=== PATIENT | male | born 1960 | race Caucasian/White ===

== ENCOUNTER 2017-02-06 14:30 | Observation (INO) ==
--- NOTE | 2017-02-06 14:33 | Emergency Department Note ---
Disposition Clinical Impression: Elevated blood pressure reading, History of diabetes mellitus, Facial droop, Smoker, Obesity Disposition: Admitted As Inpatient Condition: Fair Referrals: NO,PCP [Non-Partnered Physician] - Forms: ED Satisfaction Letter General Adult HPI - General Chief complaint: ED Neuro Symptoms/Deficit Stated complaint: facial droop Time Seen by Provider: 02/06/17 14:33 - History of Present Illness HPI Narrative: 56-year-old male reports emergency department complaining of right facial drooping and difficulty closing his right eye with some trouble swallowing and speaking. He has had symptoms for 2 days. The patient is known to be diabetic. He denies heart problems previous CVA or hypertension or hyperlipidemia. There is no history of significant headache. No neck stiffness rash or fever. No convulsions or confusion no weakness or numbness of the arms or legs. The patient has had no brett slurred speech or confusion. There is no history of chest pain or shortness of breath no abdominal pain or vomiting or diarrhea. The patient is not anticoagulated. There is no history of coughing up blood or syncope or fall. There is no history of brett eye pain. No diplopia. - Related Data Allergies Allergy/AdvReac Type Severity Reaction Status Date / Time Penicillins Allergy Anaphylaxis Verified 02/06/17 14:32 All systems ED: reviewed and negative except as stated. Past Medical History - Past Medical History Medical history: Reports: diabetes Psychiatric history: Reports: schizophrenia Physical Exam - General Limitations: no limitations General appearance: alert, in no apparent distress - Head Head exam: atraumatic, normocephalic, normal inspection - Eye Eye exam: Present: normal appearance, PERRL, EOMI, miosis. Absent: scleral icterus, conjunctival injection - ENT ENT exam: normal exam, normal oropharynx, mucous membranes moist, TM's normal bilaterally, normal external ear exam - Neck Neck exam: Present: normal inspection, full ROM, trachea midline. Absent: meningismus - Chest Chest inspection: Present: symmetric chest wall rise. Absent: tenderness - Respiratory Respiratory exam: Present: normal lung sounds bilaterally. Absent: respiratory distress, wheezes, stridor, accessory muscle use, prolonged expiratory phase - Cardiovascular Cardiovascular exam: Present: regular rate, normal rhythm, normal heart sounds - Abdominal Exam Abdominal exam: Present: soft, Non-Tender, normal bowel sounds. Absent: tenderness, distention, guarding, rebound, rigidity, pulsatile mass - Extremities Exam Extremities exam: Present: normal inspection, full ROM, normal capillary refill. Absent: tenderness, pedal edema, joint swelling, calf tenderness - Expanded Lower Extremity Exam Lower leg exam: Absent: Homans' sign Neurovascular/Tendon exam: Present: normal capillary refill. Absent: motor deficit, sensory deficit, tendon deficit, extremity cold to touch, pallor - Back Exam Back exam: Present: normal inspection, full ROM. Absent: tenderness, CVA tenderness (R), CVA tenderness (L), vertebral tenderness - Neurological Exam Neurological exam: Present: alert, oriented X3, other (Right facial droop noted , the patient cannot close his right eye well, the patient is able to wrinkle his forehead with good motion on the left and diminished on the right compared to the left. The patient is slightly dysarthric but intelligible.). Absent: CN II-XII intact, motor sensory deficit - Psychiatric Psychiatric exam: Present: normal affect, normal mood - Skin Skin exam: Present: warm, dry, intact, normal color. Absent: rash, cyanosis, diaphoresis, erythema, pallor, mottled Course Vital Signs Temperature 98.3 F 02/06/17 14:32 Pulse Rate 92 02/06/17 14:32 Respiratory Rate 18 02/06/17 14:32 Blood Pressure 134/107 02/06/17 14:32 O2 Sat by Pulse Oximetry 97 02/06/17 14:32 Temperature 98.3 F 02/06/17 14:32 Pulse Rate 92 02/06/17 14:32 Respiratory Rate 18 02/06/17 14:32 Blood Pressure 134/107 02/06/17 14:32 O2 Sat by Pulse Oximetry 97 02/06/17 14:32 Oxygen Delivery Oxygen Delivery Room Air Medical Decision Making - [facility] Narrative Medical decision making narrative: The patient presents with right facial droop, this is been present for about 2 days, he also describes some slight dysarthria and difficulty swallowing. The patient does have an element of forehead immobility on the right versus left but it is not complete. He may have So's palsy or it is conceivable the patient has cerebrovascular disease or possibly a CVA. The patient is over 50, he is male, he is a smoker, he reports he is diabetic, he has an elevated blood pressure and obvious neurologic defects which have been present for approximately 2 days. I discussed the case with our neurologist Dr. Rice, he recommends admission to the hospital for evaluation regarding stroke. Aspirin and blood pressure control has been recommended as well as hospital stroke workup including ultrasound and MRI. The patient appears to be stable. EKG labs and radiographic studies are unremarkable at this time. Aspirin was ordered as well as Lopressor. Prednisone was given as a precaution in case this is determined to be So's palsy, Pepcid given as prophylaxis. I discussed the case with the hospitalist on-call who has accepted the patient to their care. - Lab Data Lab results reviewed: Yes I reviewed the patient's lab results. Result diagrams: 02/06/17 15:11 02/06/17 15:11 Lab Results 02/06/17 02/06/17 02/06/17 Range/Units 15:11 15:11 15:11 WBC 9.9 (4.3-11.1) K/mcL RBC 5.15 (4.19-5.50) M/mcL Hgb 15.5 (12.9-16.9) g/dL Hct 45.7 (37.5-50.1) % MCV 88.7 (83.0-100.0) fL MCH 30.1 (28.0-33.3) pg MCHC 33.9 (31.6-35.5) g/dL RDW 13.3 (11.5-14.5) % Plt Count 198 (140-400) K/mcL MPV 10.0 (9.4-12.4) fL Immature Gran % 0.4 (0-4) % Seg Neutrophils % 62.5 % Lymphocytes % 24.3 % Monocytes % 8.8 % Eosinophils % 3.7 % Basophils % 0.3 % Neutrophils # 6.2 (1.6-8.9) K/mcL Lymphocytes # 2.4 (0.6-4.6) K/mcL Monocytes # 0.9 (0.0-1.3) K/mcL Eosinophils # 0.4 (0.0-0.6) K/mcL Basophils # 0.0 (0.0-0.2) K/mcL Immature Plt Fraction 5.0 (1.1-6.1) % PT 11.7 (9.4-12.1) Seconds INR 1.1 APTT 34.6 (26.0-36.0) Seconds Sodium 139 (136-145) mEq/L Potassium 3.9 (3.5-4.5) mEq/L Chloride 107 (98-109) mEq/L Carbon Dioxide 25 (19-29) mEq/L BUN 9 (8-26) mg/dL Creatinine 0.86 (0.72-1.25) mg/dL Est GFR ( Amer) > 60 (> 60) Est GFR (Non-Af Amer) > 60 (> 60) BUN/Creatinine Ratio 10 (6-26) Glucose 84 (70-99) mg/dL Calculated Osmolality 286 (280-300) Lactic Acid (0.5-2.2) mmol/L Calcium 9.4 (8.6-10.8) mg/dL Total Bilirubin 0.4 (0.2-1.2) mg/dL Direct Bilirubin 0.2 (0.0-0.5) mg/dL Indirect Bilirubin 0.2 (0.0-1.2) mg/dL AST 12 (5-34) Units/L ALT 14 (0-55) Units/L Alkaline Phosphatase 74 (38-126) Units/L Troponin I (0-0.03) ng/mL C-Reactive Protein 1 (Less than 5) mg/L Serum Total Protein 6.6 (6.0-8.3) g/dL Albumin 3.6 (3.5-5.0) g/dL Globulin 3.0 (2.4-3.5) g/dL Albumin/Globulin Ratio 1.2 (1.1-2.2) 02/06/17 02/06/17 Range/Units 15:11 15:11 WBC (4.3-11.1) K/mcL RBC (4.19-5.50) M/mcL Hgb (12.9-16.9) g/dL Hct (37.5-50.1) % MCV (83.0-100.0) fL MCH (28.0-33.3) pg MCHC (31.6-35.5) g/dL RDW (11.5-14.5) % Plt Count (140-400) K/mcL MPV (9.4-12.4) fL Immature Gran % (0-4) % Seg Neutrophils % % Lymphocytes % % Monocytes % % Eosinophils % % Basophils % % Neutrophils # (1.6-8.9) K/mcL Lymphocytes # (0.6-4.6) K/mcL Monocytes # (0.0-1.3) K/mcL Eosinophils # (0.0-0.6) K/mcL Basophils # (0.0-0.2) K/mcL Immature Plt Fraction (1.1-6.1) % PT (9.4-12.1) Seconds INR APTT (26.0-36.0) Seconds Sodium (136-145) mEq/L Potassium (3.5-4.5) mEq/L Chloride (98-109) mEq/L Carbon Dioxide (19-29) mEq/L BUN (8-26) mg/dL Creatinine (0.72-1.25) mg/dL Est GFR ( Amer) (> 60) Est GFR (Non-Af Amer) (> 60) BUN/Creatinine Ratio (6-26) Glucose (70-99) mg/dL Calculated Osmolality (280-300) Lactic Acid 0.9 (0.5-2.2) mmol/L Calcium (8.6-10.8) mg/dL Total Bilirubin (0.2-1.2) mg/dL Direct Bilirubin (0.0-0.5) mg/dL Indirect Bilirubin (0.0-1.2) mg/dL AST (5-34) Units/L ALT (0-55) Units/L Alkaline Phosphatase (38-126) Units/L Troponin I 0.00 (0-0.03) ng/mL C-Reactive Protein (Less than 5) mg/L Serum Total Protein (6.0-8.3) g/dL Albumin (3.5-5.0) g/dL Globulin (2.4-3.5) g/dL Albumin/Globulin Ratio (1.1-2.2) - Radiology Data Radiology results reviewed: Yes I reviewed the patient's radiology results.
[2017-02-06 15:19] LABS: Basophils % 0.3 %; Eosinophils # 0.4 K/mcL (0.0-0.6); Eosinophils % 3.7 %; Hematocrit 45.7 % (37.5-50.1); Hemoglobin 15.5 g/dL (12.9-16.9); Immature Granulocytes % 0.4 % (0-4); Lymphocytes # 2.4 K/mcL (0.6-4.6); Lymphocytes % 24.3 %; Mean Corpuscular HGB Conc 33.9 g/dL (31.6-35.5); Mean Corpuscular Hemoglobin 30.1 pg (28.0-33.3); Mean Corpuscular Volume 88.7 fL (83.0-100.0); Monocytes # 0.9 K/mcL (0.0-1.3); Monocytes % 8.8 %; Neutrophils # 6.2 K/mcL (1.6-8.9); Platelet Count 198 K/mcL (140-400); Red Blood Count 5.15 M/mcL (4.19-5.50); Red Cell Distribution Width 13.3 % (11.5-14.5); Segmented Neutrophils % 62.5 %
[2017-02-06 15:23] LABS: INR 1.1; Prothrombin Time 11.7 Seconds (9.4-12.1)
[2017-02-06 15:25] LABS: Activated Partial Thrombo Time 34.6 Seconds (26.0-36.0)
[2017-02-06 15:32] LABS: Alanine Aminotransferase 14 Units/L (0-55); Albumin 3.6 g/dL (3.5-5.0); Albumin/Globulin Ratio 1.2 (1.1-2.2); Alkaline Phosphatase 74 Units/L (38-126); Aspartate Amino Transferase 12 Units/L (5-34); BUN/Creatinine Ratio 10 (6-26); Bilirubin,Direct 0.2 mg/dL (0.0-0.5); Bilirubin,Indirect 0.2 mg/dL (0.0-1.2); Bilirubin,Total 0.4 mg/dL (0.2-1.2); Blood Urea Nitrogen 9 mg/dL (8-26); Calcium 9.4 mg/dL (8.6-10.8); Carbon Dioxide 25 mEq/L (19-29); Chloride 107 mEq/L (98-109); Glucose 84 mg/dL (70-99); Osmolality,Calculated 286 (280-300); Potassium 3.9 mEq/L (3.5-4.5); Sodium 139 mEq/L (136-145); Total Protein 6.6 g/dL (6.0-8.3); eGFR For African Americans > 60 (> 60); eGFR For Non-African Americans > 60 (> 60)
[2017-02-06 16:07] LABS: C-Reactive Protein 1 mg/L (Less than 5)
[2017-02-06] MEDS ORDERED: *HR* Metoprolol 5 MG/5 ML VIAL IVP ONE (16:55)
[2017-02-06] MEDS ORDERED: predniSONE 20 MG TABLET PO ONE (16:55)
[2017-02-06] MEDS ORDERED: Famotidine 20 MG/2 ML VIAL IVP ONE (16:56)
[2017-02-06] MEDS ORDERED: Aspirin 325 MG TABLET PO ONE (16:56)
[2017-02-06] MEDS ORDERED: methylPREDNISolone 125 MG/2 ML VIAL IVP ONE (17:45)
[2017-02-06] MEDS ORDERED: Acetaminophen 325 MG TABLET PO PRN (17:59)
[2017-02-06] MEDS ORDERED: Naloxone 0.4 MG/ML INJ IVP PRN (17:59)
--- NOTE | 2017-02-06 18:05 | Internal Med History&Physical ---
Date of Encounter: 02/06/17 Time of Encounter: 18:05 Assessment and Plan (1) Facial droop Current visit: Yes Status: Acute Patient has been experiencing right-sided facial droop with inability to close eye and dysarthria for approximately 2 days he is able to wrinkle forehead on left side is diminished on the right suspect possible pills possibly however he is high risk for stroke due to history of diabetes tobacco use obesity who presented with hypertension. We will rule out possible stroke, we will continue with aspirin daily 2 patient failed bedside swallow-we will make nothing by mouth -consult speech for evaluation 3 we will obtain echo 4 we will obtain carotid Dopplers 5 CT of head was negative we will obtain MRI 6 we will consult neurology 7 we will monitor neuro status 8 lipid profile in a.m. 9 continuous cardiac monitoring (2) History of diabetes mellitus Current visit: Yes Status: Acute 1 patient is nothing by mouth we will monitor blood sugars every 6 hours cover with sliding scale (3) Smoker Current visit: Yes Status: Acute 1 patient admits to 2 pack-a-day smoker of cigarettes as well as marijuana he last smoked marijuana yesterday. Encouraged patient to stop smoking nicotine patch (4) DVT prophylaxis Current visit: Yes Status: Acute [facility] Internal Medicine - H&P: HPI Chief complaint: R facial droop Admitted From: Emergency Dept Plans for Post Hospital Care: Home History of present illness: Mr. Raygoza is a 56 year old male past medical history of diabetes and schizophrenia depression tobacco/marijuana use. Patient has been experiencing right facial droop and difficulty closing right eye slight dysarthria and difficulty swallowing for approximately 2 days. He denies any weakness difficulty ambulating vision changes or headaches he denies any past history of stroke, seizure or head injury. She denies any recent falls or trauma. No fever chills nausea vomiting neck pain/stiffness abdominal pain. He presented to the ER today with the above complaints. According to ER records patient's initial lab was unremarkable CT scan showed no acute intracranial abnormalities EKG/radiographic studies are unremarkable. the case was reviewed with neurologist Dr Lazcano who recommends admission for evaluation possible stroke. Patient has been made nothing by mouth he has failed his bedside swallow he was given aspirin rectally Lopressor IV as well as steroids precautionary in case of So's palsy. Patient admitted for further workup evaluation. Presently on assessment patient does have right facial droop he cannot close his right eye, sclera are red eye is watery patient is able to wrinkle his forehead with good motion on the left diminished on the right he has slightly dysarthric however understandable speech. Is able to move all extremities without difficulty. Strength strong and equal in all extremities 4. He follows simple commands lung sounds are clear heart sounds S1-S2 with no rubs clicks, murmurs noted. Abdomen soft and nontender no pedal edema noted. He sinus rhythm on monitor. Presently he is hemodynamically stable. Reviewed case with Dr Banks who agrees with plan Past Med Surg Social Fam HX - Past Medical History Medical history: diabetes Psychiatric history: schizophrenia - Social History Smoking Status: Current every day smoker Smokeless Tobacco Status: Yes Alcohol use: rarely Drug use: marijuana - Additional Family History Additional family history: reviewed noncontributory Internal Medicine - H&P: Meds Allergies Penicillins Allergy (Verified 02/06/17 14:32) Anaphylaxis All Systems PM: A 10-system review of systems was performed and is negative for pertinent findings except as documented above in the HPI. - Constitutional Constitutional: no chills, no fever(s), no night sweats - EENT Eyes: irritation, itchy eyes, no change in vision, no discharge, no pain, no photophobia Nose, mouth and throat: no dysphagia, no nasal discharge, no neck pain, no sore throat - Cardiovascular Cardiovascular ROS IM: no chest pain, no diaphoresis, no dyspnea, no lightheadedness, no palpitations, no syncope - Respiratory Respiratory: no cough, no dyspnea, no wheezing, no excessive phlegm production - Gastrointestinal Gastrointestinal: no abdominal pain, no diarrhea, no hematemesis, no hematochezia, no melena, no nausea, no vomiting - Musculoskeletal Musculoskeletal ROS IM: no numbness, no tingling - Integumentary Integumentary IM: no rash, no unusual bruising - Neurological Neurological ROS: abnormal speech, no confusion, no convulsions, no focal weakness, no numbness, no tingling, no tremor(s) - Hematologic/Lymphatic Hematologic/Lymphatic: no easy bruising - Constitutional Vitals: Temp Pulse Resp BP Pulse Ox 98.3 F 92 18 134/107 97 02/06/17 14:32 02/06/17 14:32 02/06/17 14:32 02/06/17 14:32 02/06/17 14:32 General appearance: Present: A&O X 3 - Head Head exam: Present: atraumatic, normocephalic - Eye Eye exam: Present: PERRL, conjuntiva pink, sclera anicteric Pupils: Present: PERRL - Neck Neck exam general surgery: Present: supple, trachea midline. Absent: lymphadenopathy - Respiratory Respiratory exam: Present: CTAB. Absent: accessory muscle use, rales, rhonchi, wheezes - Cardiovascular Cardiovascular exam: Present: RRR, +S1, +S2. Absent: diastolic murmur, gallop, rubs, systolic murmur - GI/Abdominal GI/Abdominal exam: Present: normal bowel sounds, soft, no peritoneal signs. Absent: distended, tenderness - Extremities Exam Extremities exam: Present: warm, radial pulses palpable and symetrical. Absent : calf tenderness, cyanotic, pedal edema - Neurological Exam Neurological exam: Present: CN II-XII intact, oriented X3, no focal deficits, facial droop. Absent: pronater drift, speech deficit - Expanded Neurological Exam Patient oriented to: Present: person, place, time Speech: Present: slurred Cranial Nerves: tongue deviation PM: Abnormal Left (Slight deviation to the right) Coma Scale Eye Opening: Spontaneous Coma Scale Motor Response: Obeys Commands Coma Scale Verbal Response: Oriented Coma Scale Total: 15 - Skin Skin exam: Present: dry, intact Internal Med - H&P Results - Labs CBC & Chem 7: 02/06/17 15:11 02/06/17 15:11 - EKG Data EKG shows normal: sinus rhythm - Diagnostic Studies Other Images Additional comments: Chest X-Ray 02/06/17 14:41 IMPRESSION: No acute findings. D/ / Adri Eason MD / Adri Eason MD Interpreting Provider: Adri Eason MD Head CT 02/06/17 14:42 IMPRESSION: 1. No acute intracranial abnormality. D/ / 02/06/2017 15:26:16 Charlie Simms MD / navneet Interpreting Provider: Charlie Simms MD
[2017-02-06] MEDS ORDERED: Dextrose Gel 15 GM PO PRN ×2 (19:06)
[2017-02-06] MEDS ORDERED: D5% in Water 1,000 ML IVC PRN (19:06)
[2017-02-06] MEDS ORDERED: *HR* Dextrose 50 % in Water (Syg) 50 ML SYRINGE IVP PRN (19:06)
[2017-02-06] MEDS: Nicotine 21 MG PATCH.TD24 TD SCH (20:06)
[2017-02-06] MEDS: Artificial Tears SOLN 15 ML BOTTLE RIGHT EYE SCH (21:04)
[2017-02-06] MEDS: MethylPREDNISolone 40 MG/ML VIAL IVP SCH (23:23)
[2017-02-06] MEDS: Insulin LISPRO 300 UNITS/3 ML VIAL SQ SCH (23:24)
[2017-02-07 03:12] LABS: Basophils % 0.1 %; Hemoglobin 16.5 g/dL (12.9-16.9); Immature Granulocytes % 0.5 % (0-4); Immature Platelets 5.1 % (1.1-6.1); Lymphocytes # 1.1 K/mcL (0.6-4.6); Lymphocytes % 13.4 %; Mean Corpuscular HGB Conc 34.4 g/dL (31.6-35.5); Mean Corpuscular Hemoglobin 30.1 pg (28.0-33.3); Mean Corpuscular Volume 87.6 fL (83.0-100.0); Mean Platelet Volume 10.1 fL (9.4-12.4); Monocytes # 0.1 K/mcL (0.0-1.3); Monocytes % 0.9 %; Neutrophils # 7.2 K/mcL (1.6-8.9); Platelet Count 217 K/mcL (140-400); Red Blood Count 5.48 M/mcL (4.19-5.50); Segmented Neutrophils % 85.1 %
[2017-02-07 03:36] LABS: BUN/Creatinine Ratio 13 (6-26); Blood Urea Nitrogen 11 mg/dL (8-26); Calcium 9.7 mg/dL (8.6-10.8); Carbon Dioxide 23 mEq/L (19-29); Chloride 108 mEq/L (98-109); Chol/HDL Ratio 6.3 (0-4.9); Cholesterol 233 mg/dL (< 200); Glucose 164 mg/dL (70-99); HDL Cholesterol 37 mg/dL (40-59); LDL Cholesterol,Calculated 179 mg/dL (0-99); Magnesium 1.8 mg/dL (1.6-2.6); Osmolality,Calculated 289 (280-300); Potassium 4.3 mEq/L (3.5-4.5); Sodium 138 mEq/L (136-145); Triglycerides 85 mg/dL (< 150); eGFR For African Americans > 60 (> 60); eGFR For Non-African Americans > 60 (> 60)
[2017-02-07] MEDS: Insulin LISPRO 300 UNITS/3 ML VIAL SQ SCH ×3 (05:57→17:50)
[2017-02-07] MEDS: Famotidine 20 MG/2 ML VIAL IVP SCH ×2 (05:57→17:39)
[2017-02-07] MEDS: MethylPREDNISolone 40 MG/ML VIAL IVP SCH ×3 (05:57→17:39)
[2017-02-07] MEDS ORDERED: *HR* Enoxaparin 40 MG/0.4 ML SYRINGE SQ SCH (07:00)
[2017-02-07] MEDS ORDERED: Aspirin Enteric Coated 81 MG Tablet PO SCH (09:00)
[2017-02-07] MEDS ORDERED: Aspirin 325 MG TABLET PO SCH (09:00)
[2017-02-07] MEDS: Nicotine 21 MG PATCH.TD24 TD SCH ×2 (09:27→09:42)
[2017-02-07] MEDS: Artificial Tears SOLN 15 ML BOTTLE RIGHT EYE SCH ×3 (09:28→17:50)
--- NOTE | 2017-02-07 11:43 | Neurology - Consult Note ---
<Hernandez Ann - Last Filed: 02/07/17 11:33> Date of Encounter: 02/07/17 Time of Encounter: 08:20 Assessment and Plan (1) Facial droop Current Visit: Yes Status: Acute Patient with right-sided facial droop, inability to close right eye, and dysarthria and dysphagia 3 days ago concerning for stroke versus So's palsy. Patient has no other neurological deficits. Symptoms of dysarthria and dysphagia resolving Plan: MR head and brain without contrast. Continue current medicine regimen. More recommendations to follow. History of Present Illness Chief complaint: right sided facial weakness, slurring speech HPI: Mr. Raygoza is a 56 year old male with a past medical history for diabetes mellitus and schizophrenia. We are consulted for complaint of right-sided facial droop and inability to close right eye and dysarthria 3 days ago. Patient states that he did not tell anyone about his symptoms because he thought the symptoms would go away. Patient states that there were no precipitating events of trauma, some loss of consciousness, recent illness, difficulty breathing, changes in vision or focal weaknesses anywhere else. Patient denies fevers chills nausea vomiting diarrhea numbness and tingling in extremities. Patient also denies any new medications outside of what was prescribed for allergies to include eyedrops, Claritin, and nasal spray. Patient denies history of stroke or new headaches, sudden onset of rapid increase intensity of any headaches. Past Med Surg Social Fam HX - Past Medical History Attestation: Yes The following information was validated with the patient. Source: patient Medical history: diabetes Psychiatric history: schizophrenia - Past Surgical History Surgical History: appendectomy, cancer surgery, other - Social History Smoking Status: Former smoker Smokeless Tobacco Status: Yes Alcohol use: occasionally Drug use: marijuana - Family History Father Living Status: Hx Family Cardiac Disorders: Yes Medications and Allergies Azelastine HCl 1 drop OP BID 02/07/17 [History] Bupropion HCl [Wellbutrin Xl] 300 mg PO DAILY 02/07/17 [History] Fluticasone Propionate Nasal [Flonase] 2 spray NS DAILY 02/07/17 [History] Loratadine [Claritin] 10 mg PO DAILY 02/07/17 [History] Montelukast [Singulair] 10 mg PO DAILY 02/07/17 [History] Paliperidone [Invega] 9 mg PO BID 02/07/17 [History] metFORMIN [Glucophage] 500 mg PO BID 02/07/17 [History] Allergies Penicillins Allergy (Verified 02/06/17 14:32) Anaphylaxis All Systems: A 10-system review of systems was performed and is negative for pertinent findings except as documented above in the HPI. - Constitutional Constitutional ROS IM: as per HPI - Nose, Mouth, Throat Nose, mouth and throat: as per HPI - Cardiovascular Cardiovascular ROS IM: as per HPI - Respiratory Respiratory IM: as per HPI - Gastrointestinal Gastrointestinal: as per HPI - Genitourinary Genitourinary ROS: as per HPI - Musculoskeletal Musculoskeletal ROS IM: as per HPI - Integumentary Integumentary IM: no photosensitivity, no rash - Neurological Neurological ROS: as per HPI Physical Examination - Vital Signs Vital Signs: Initial Vital Signs Temp Pulse Resp BP Pulse Ox 98.3 F 92 18 134/107 97 02/06/17 14:32 02/06/17 14:32 02/06/17 14:32 02/06/17 14:32 02/06/17 14:32 - Constitutional General appearance: comfortable - Neurologic Sensorimotor examination: intact Detailed motor examination: grossly full strength in all extremities, full strength in all major muscle groups Motor examination - right side: 5/5: deltoids, biceps, triceps, wrist flexion, wrist extension, trading floor operator, hip flexors, tibialis Anterior, quadriceps, toe extension (EHL), plantarflexion Motor examination - left side: 5/5: deltoids, biceps, triceps, wrist flexion, wrist extension, hip flexors, trading floor operator, quadriceps, tibialis Anterior, toe extension (EHL), plantarflexion Detailed sensory examination: intact, light touch, position sense, other ( Patient is able to distinguish one point discrimination but equal bilaterally) Reflex and gait examination: normal gait Reflexes: Patella: 2+ Mental Status Examination: awake, alert, oriented to person, oriented to place, oriented to time, follows commands appropriately, answers questions appropriately, no agnosia, no aphasia, no aproxia Cranial nerve examination: PERRL, EOMI, visual aggarwal intact, sensory to face intact Cranial Nerve Exam: blink reflex diminished: Right, facial droop: Right Cerebellar examination: performs finger to nose and heel to russell symmetrically without ataxia, no difficulty with rapid alternating movements Results - Laboratory Findings CBC and BMP: 02/07/17 03:05 02/07/17 03:05 Abnormal lab findings: Abnormal lab results Glucose 164 mg/dL (70-99) H 02/07/17 03:05 POC Glucose 153 (58-89) H 02/07/17 00:25 Cholesterol 233 mg/dL (< 200) H 02/07/17 03:05 LDL Cholesterol, Calc 179 mg/dL (0-99) H 02/07/17 03:05 HDL Cholesterol 37 mg/dL (40-59) L 02/07/17 03:05 Cholesterol/HDL Ratio 6.3 (0-4.9) H 02/07/17 03:05 - Diagnostic Findings EKG: report reviewed Chest x-ray: report reviewed Consult Discharge Plan - Plan Referrals: Chucho Garland, PAC [Primary Care Provider] - <Saul Wahl - Last Filed: 02/07/17 16:28> Date of Encounter: 02/07/17 Time of Encounter: 16:21 Assessment and Plan (1) Facial droop Current Visit: Yes Status: Acute Mr. Raygoza's examination from a neurologic perspective is completely consistent with a right peripheral facial palsy i.e. So's palsy. At this point I think we can forego the MRI scan of the brain. I would recommend Lyme testing if this has not already been done. Might consider sending him home on oral acyclovir for 1 week along with a tapering dose of prednisone. I would like to follow with this gentleman in my office in another 1-2 weeks after discharge. History of Present Illness HPI: Mr. Raygoza is a 56 year old male who was seen and evaluated secondary to a chief complaint of right facial weakness. Patient was seen and examined independently. I agree with Dr. Ann's assessment as stated above. I would like to add that Mr. Raygoza did experience pain in the right ear in the right posterior lateral region of his neck. He denied any rash involving the external canal. All Systems: A 10-system review of systems was performed and is negative for pertinent findings except as documented above in the HPI. Physical Examination - Vital Signs Vital Signs: Initial Vital Signs Temp Pulse Resp BP Pulse Ox 98.3 F 92 18 134/107 97 02/06/17 14:32 02/06/17 14:32 02/06/17 14:32 02/06/17 14:32 02/06/17 14:32 Results - Laboratory Findings CBC and BMP: 02/07/17 03:05 02/07/17 03:05 Abnormal lab findings: Abnormal lab results Glucose 164 mg/dL (70-99) H 02/07/17 03:05 POC Glucose 153 (58-89) H 02/07/17 00:25 Cholesterol 233 mg/dL (< 200) H 02/07/17 03:05 LDL Cholesterol, Calc 179 mg/dL (0-99) H 02/07/17 03:05 HDL Cholesterol 37 mg/dL (40-59) L 02/07/17 03:05 Cholesterol/HDL Ratio 6.3 (0-4.9) H 02/07/17 03:05 U Marijuana (THC) Screen Positive ng/mL (Cutoff = 50) H 02/07/17 11:16
[2017-02-07 15:11] VITALS: BP 138/77
[2017-02-07 15:25] LABS: Amphetamine Screen,Urine Negative ng/mL (Cutoff=1000); Barbiturate Screen,Urine Negative ng/mL (Cutoff=200); Benzodiazepines Screen,Urine Negative ng/mL (Cutoff=200); Cannabinoid Screen,Urine Positive ng/mL (Cutoff = 50); Cocaine Screen,Urine Negative ng/mL (Cutoff= 300); Opiate Screen,Urine Negative ng/mL (Cutoff=300); Phencyclidine Screen,Urine Negative ng/mL (Cutoff=25)
--- NOTE | 2017-02-07 17:54 | Electrocardiograph Report ---
[place] [id number] Test Date: 2017-02-06 Pat Name: John Raygoza Department: 102 Room: 3B Gender: M [employer] Forms: Msc : 1960 Requested By: Juvencio Rubio Order Number: [id number] Reading MD: Popeye Burns MD Measurements Intervals [place] Rate: 84 P: 57 MN: 164 QRS: 77 QRSD: 94 T: 37 QT: 347 QTc: 388 Interpretive Statements SINUS RHYTHM BASELINE ARTIFACT Electronically Signed On 02-07-2017 17:52:38 EDT by Popeye Burns MD
--- NOTE | 2017-02-07 18:22 | Discharge Summary ---
Date of Encounter: 02/07/17 Time of Encounter: 17:30 - Discharge Diagnosis (1) Facial droop Priority: Primary Status: Acute (2) So's palsy Priority: Primary Status: Suspected Comments: Physical examination consistent with right-sided So's palsy. Importance of keeping his eye moist was discussed in detail. He will also follow-up with neurology in 1-2 weeks. We will send him on on by mouth acyclovir 1 week as well as a prednisone taper per neurology's recommendations. No other focal neurological weaknesses. Cleared per speech therapy. (3) Elevated blood pressure reading Priority: Primary Status: Resolved Comments: Patient is not on any antihypertensive medications at home, he was normotensive on day of discharge without the use of medications. Recommend daily blood pressure checks at home, keeping a log, and following up outpatient. (4) History of diabetes mellitus Priority: Secondary Status: Chronic Comments: Appears relatively well controlled at home, no recent A1c, recommend continued follow-up outpatient. (5) Smoker Priority: Secondary Status: Chronic Comments: Declined counseling (6) Obesity Priority: Secondary Status: Chronic Qualifiers: Obesity type: due to excess calories Obesity severity: non-morbid Qualified Code(s): E66.09 - Other obesity due to excess calories (7) DVT prophylaxis Priority: Primary Status: Acute Comments: Subcutaneous Lovenox while admitted - Discharge Medications Prescriptions: Artificial Tears SOLN [Akwa Tears] 1 drop RIGHT EYE Q1H #1 bottle Eye Patch 1 each MC HS #1 each Glycerin/Propylene Glycol [Soothe Lubricant Eye Drops] 1 each OP HS #30 droperette predniSONE [PredniSONE] 10 mg PO DAILY #45 tablet Valacyclovir HCl [Valtrex] 1,000 mg PO TID #21 tab Home Medications: Artificial Tears SOLN [Akwa Tears] 1 drop RIGHT EYE Q1H #1 bottle 02/07/17 [Rx] Azelastine HCl 1 drop OP BID 02/07/17 [History] Bupropion HCl [Wellbutrin Xl] 300 mg PO DAILY 02/07/17 [History] Eye Patch 1 each MC HS #1 each 02/07/17 [Rx] Fluticasone Propionate Nasal [Flonase] 2 spray NS DAILY 02/07/17 [History] Glycerin/Propylene Glycol [Soothe Lubricant Eye Drops] 1 each OP HS #30 droperette 02/07/17 [Rx] Loratadine [Claritin] 10 mg PO DAILY 02/07/17 [History] Montelukast [Singulair] 10 mg PO DAILY 02/07/17 [History] Paliperidone [Invega] 9 mg PO BID 02/07/17 [History] Valacyclovir HCl [Valtrex] 1,000 mg PO TID #21 tab 02/07/17 [Rx] metFORMIN [Glucophage] 500 mg PO BID 02/07/17 [History] predniSONE [PredniSONE] 10 mg PO DAILY #45 tablet 02/07/17 [Rx] Allergies/Adverse Reactions: Allergies Penicillins Allergy (Verified 02/06/17 14:32) Anaphylaxis Procedures/tests Complete & Pending: Procedures Performed prior 72 hours Category Date Time Status EV carotid duplex imaging BI Routine Y 02/07/17 18:03 Completed EV echocardiogram Routine Y 02/07/17 18:02 Completed Date of admission: 02/06/17 17:25 Primary care physician: Chucho Garland Consults: 02/06/17 18:02 Consult to Speech Therapy [CONS] Routine Comment: Evaluate, develop and implement POC Reason for Consult: Right-sided facial droop-swallow eval Time Notified: 18:02 Call Completed: No 02/06/17 20:05 Consult to Fence Machine Operator [CONS] Routine Reason for SW Consult: resume services Discharging clinician: Rosy Espinal Anticipated date of discharge: 02/07/17 - Patient Status Disposition: Home, Self-Care Condition: Fair Functional capacity at discharge: independent ambulation Overall status at discharge: patient is progressing back to baseline - Discharge Instructions Follow Up With: Chucho Garland PAC [Primary Care Provider] - Saul Wahl DO [Partnered Physician] - Additional Instructions: Follow-up with primary care provider within one to 2 weeks, follow-up with neurology within 1-2 weeks - Diet and Activity Activity: increase activity as tolerated Diet: diabetic diet, low fat, low cholesterol, low salt diet Hospital course: Mr. Raygoza is a 56 year old male with past medical history of diabetes, schizophrenia, tobacco and marijuana abuse. Patient presented to the emergency room for chief complaint of right-sided facial droop 2 days. Patient endorsing right-sided facial droop with difficulty closing his right eye associated with slight dysarthria and difficulty swallowing for 2 days. He denied any weakness, injuries, or difficulty ambulating. He denied any vision changes or headaches. Workup in the emergency department unremarkable. Chest x -ray negative. Head CT negative. Patient was admitted to the hospitalist service for further evaluation and management. Echocardiogram unremarkable with ejection fraction of 60% with mild diastolic dysfunction. Patient was euvolemic on examination during this admission and denied pain or shortness of breath. Carotid ultrasound unremarkable. Patient's examination was highly consistent with right sided So's palsy. Of note, patient is not able to close his right eye so he was prescribed lubricating drops and instructed to use them hourly while awake and then he was prescribed a petroleum-based lubricant to wear at night as well as an eye patch. He was educated at great lengths on the importance of keeping his eye moist. There is no indication for a brain MRI, low suspicion for CVA. He was seen and cleared by speech therapy for regular diet with thin liquids. He was seen and evaluated by neurology who cleared him for outpatient follow-up. He was sent also with prednisone taper, and acyclovir. He was discharged home in stable condition with close outpatient follow-up recommended. ITS Impressions Chest X-Ray 02/06/17 14:41 IMPRESSION: No acute findings. D/ / Adri Eason MD / Adri Eason MD Interpreting Provider: Adri Eason MD Head CT 02/06/17 14:42 IMPRESSION: 1. No acute intracranial abnormality. D/ / 02/06/2017 15:26:16 Charlie Simms MD / navneet Interpreting Provider: Charlie Simms MD Echocardiogram with saline contrast impressions: LVEF 60%. Normal LV chamber size, wall thickness and function. Mild left ventricular diastolic dysfunction. Normal right ventricular structure and function. No evidence of PFO with agitated saline contrast. No evidence of pulmonary hypertension. No significant valvular dysfunction. 02/07/17 11:31 - Vascular Preliminary by Alexei Luevano Acct Num: [id number] : 1960 Patient Age: 56 Carotid ultrasound appears to show bilateral carotids to be within normal limits. - Time Spent with Patient Total time spent providing and/or coordinating discharge services: - Constitutional Vitals: Temp Pulse Resp BP Pulse Ox 97.9 F 96 16 138/77 95 02/07/17 15:09 02/07/17 15:09 02/07/17 15:09 02/07/17 15:09 02/07/17 15:09 General appearance: Present: A&O X 3, pleasant, no acute distress, answers questions appropriately - Head Head exam: Present: atraumatic, normocephalic - Eye Eye exam: Present: PERRL, conjuntiva pink, sclera anicteric Pupils: Present: PERRL - Expanded Eye Exam Eyelids: right: erythema (unable to close right eye) - Neck Neck exam general surgery: Present: supple, trachea midline. Absent: lymphadenopathy - Respiratory Respiratory exam: Present: CTAB. Absent: accessory muscle use, rales, respiratory distress, rhonchi, wheezes - Cardiovascular Cardiovascular exam: Present: RRR, +S1, +S2. Absent: diastolic murmur, gallop, rubs, systolic murmur - GI/Abdominal GI/Abdominal exam: Present: distended, normal bowel sounds, soft, no peritoneal signs. Absent: tenderness - Extremities Exam Extremities exam: Present: warm, radial pulses palpable and symetrical. Absent : calf tenderness, cyanotic, pedal edema - Neurological Exam Neurological exam: Present: alert, CN II-XII intact, normal gait, oriented X3, no focal deficits, strengths equal and symetr throughout, facial droop, speech deficit (mild slurring- intelligible). Absent: pronater drift - Skin Skin exam: Present: dry, intact, normal color, warm
--- NOTE | 2017-02-08 12:21 | Carotid Imaging Report ---
Carotid Duplex Patient Name:John Raygoza Order Number:[id number] Procedure Date:02/07/2017 Date:1960ge:56 yrs Gender:Male Location:[facility] Room #: 3B34 Employment And Claims Aide:Tommy Luevano RDCS Referring MD:Nataliya Young CNP metal control coordinator:Chucho Garland, PAC Reading MD:Pablo Smith MD Primary Indications:CVA Risk Factors Yes/No Diabetes Yes Smoker Previous Yes Impressions: The bilateral carotid arteries are normal throughout. Recommendations: After imaging the patient returned to their room. Findings Carotid Duplex: Ascencio scale imaging combined with Doppler flow analysis suggests normal findings bilaterally. Right: The right proximal common carotid artery has a PSV of 124 cm/s and a EDV of 21 cm/s. The right mid common carotid artery has a PSV of 123 cm/s and a EDV of 24 cm/s. The right distal common carotid artery has a PSV of 11 cm/s and a EDV of 24 cm/s. The right bifurcation has a PSV of 86 cm/s and a EDV of 18 cm/s. The right proximal internal carotid artery has a PSV of 96 cm/s and a EDV of 27 cm/s. The right mid internal carotid artery has a PSV of 97 cm/s and a EDV of 21 cm/s. The right distal internal carotid artery has a PSV of 59 cm/s and a EDV of 17 cm/s. The right eca has a PSV of 220 cm/s and a EDV of 31 cm/s. The right vertebral artery has a PSV of 34 cm/s and a EDV of 11 cm/s. Left: The left proximal common carotid artery has a PSV of 140 cm/s and a EDV of 20 cm/s. The left mid common carotid artery has a PSV of 135 cm/s and a EDV of 24 cm/s. The left distal common carotid artery has a PSV of 140 cm/s and a EDV of 35 cm/s. The left bifurcation has a PSV of 112 cm/s and a EDV of 29 cm/s. The left proximal internal carotid artery has a PSV of 60 cm/s and a EDV of 19 cm/s. The left mid internal carotid artery has a PSV of 76 cm/s and a EDV of 23 cm/s. The left distal internal carotid artery has a PSV of 69 cm/s and a EDV of 23 cm/s. The left eca has a PSV of 141 cm/s and a EDV of 22 cm/s. The left vertebral artery has a PSV of 29 cm/s and a EDV of 9 cm/s. Prior Study: No prior study available for comparison. Carotid Results Right PSV EDV Assessment Proximal CCA 124 21 Normal Mid CCA 123 24 Normal Distal CCA 11 24 Normal Bifurcation 86 18 Normal Proximal ICA 96 27 Normal Mid ICA 97 21 Normal Distal ICA 59 17 Normal ECA 220 31 Normal Vertebral Artery 34 11 Normal Left PSV EDV Assessment Proximal CCA 140 20 Normal Mid CCA 135 24 Normal Distal CCA 140 35 Normal Bifurcation 112 29 Normal Proximal ICA 60 19 Normal Mid ICA 76 23 Normal Distal ICA 69 23 Normal ECA 141 22 Normal Vertebral Artery 29 9 Normal Ratio's Right ICA/CCA Ratio: 0.79 ICA/CCA Values: 97/123 Left ICA/CCA Ratio: 0.83 ICA/CCA Values: 112/135 Updated by Pablo Smith MD on 02/08/2017 12:15:45 PM electronically signed on 02/08/2017 12:15:57 PM with status of Final
== END 2017-02-07 19:01 | disposition home or self-care (01) ==
LOC: 3BNU 14:30 → EMEROO 14:30 → 3BNU 19:09
PROVIDERS: ADMIT Nurse Practitioner Family; ATTEND Nurse Practitioner Family

== ENCOUNTER 2019-05-19 11:02 | Inpatient (IN) ==
[2019-05-19] MEDS ORDERED: Haloperidol Lactate 5 MG/ML VIAL IM ONE ×3 (11:11→11:17)
[2019-05-19] MEDS ORDERED: Haloperidol Lactate 5 MG/ML VIAL ONE (11:11)
--- NOTE | 2019-05-19 11:20 | Emergency Department Note ---
Disposition Clinical Impression: Acute psychosis, Chronic schizophrenia Disposition: Admitted As Inpatient Condition: Fair Referrals: NONE,PCP [Primary Care Provider] - Forms: ED Satisfaction Letter Time of Disposition: 17:28 Psych HPI - General Chief Complaint: ED Psychiatric Symptoms Stated Complaint: SI/HI Time Seen by Provider: 05/19/19 11:12 Source: patient Mode of arrival: ambulatory Limitations: altered mental status Nursing Notes Reviewed: Yes Vital Signs Reviewed: Yes - History of Present Illness HPI Narrative: 58-year-old male history from EMS. They report patient being found combative and with some lacerations on his hands. Patient apparently had stopped taking his psychiatric medicines sometime ago because he did not think they were working. On initial evaluation patient refuses to provide a history of physical did was screaming us and call us names. He required chemical and possibly physical restraints to prevent injury to himself or to others. Pt complaint: medical clearance request If medical clearance, reason: psychiatric condition Onset (ago): unknown Duration: constant Improves with: none Worsens with: none Context: not taking psychiatric medications Alleged intoxication: No Associated Psychiatric Symptoms: suicidal ideation, homicidal ideation Associated symptoms: Reports: other (Patient unwilling to provide a history) Treatments prior to arrival: none - Related Data Home Medications Medication Instructions Recorded Confirmed Azelastine HCl 1 drop OP BID 02/07/17 02/07/17 Bupropion HCl [Wellbutrin Xl] 300 mg PO DAILY 02/07/17 02/07/17 Fluticasone Propionate Nasal 2 spray NS DAILY 02/07/17 02/07/17 [Flonase] Loratadine [Claritin] 10 mg PO DAILY 02/07/17 02/07/17 Montelukast [Singulair] 10 mg PO DAILY 02/07/17 02/07/17 Paliperidone [Invega] 9 mg PO BID 02/07/17 02/07/17 metFORMIN [Glucophage] 500 mg PO BID 02/07/17 02/07/17 Previous Rx's Medication Instructions Recorded Artificial Tears SOLN [Akwa Tears] 1 drop RIGHT EYE Q1H #1 bottle 02/07/17 Eye Patch 1 each MC HS #1 each 02/07/17 Glycerin/Propylene Glycol [Soothe 1 each OP HS #30 droperette 02/07/17 Lubricant Eye Drops] Valacyclovir HCl [Valtrex] 1,000 mg PO TID #21 tab 02/07/17 predniSONE [PredniSONE] 10 mg PO DAILY #45 tablet 02/07/17 Allergies Allergy/AdvReac Type Severity Reaction Status Date / Time Penicillins Allergy Anaphylaxis Verified 04/30/19 12:00 Limitations: ROS unobtainable due to patients medical condition (Patient essentially failed to answer any questions all he did was screaming) Past Medical History - Past Medical History Attestation: Yes The following information was validated with the patient. Medical history: Reports: diabetes Surgical history: Reports: appendectomy, cancer surgery, other Psychiatric history: Reports: schizophrenia - Social History Smoking Status: Current every day smoker Smokeless Tobacco Status: Yes Alcohol use: Reports: occasionally Drug use: Reports: marijuana Physical Exam - General Limitations: altered mental status General appearance: alert, in no apparent distress, anxious - Head Head exam: atraumatic - Eye Eye exam: Present: normal appearance - Neck Neck exam: Present: normal inspection - Chest Chest inspection: Present: normal inspection - Respiratory Respiratory exam: Present: normal lung sounds bilaterally, wheezes (Very mild wheezing bilaterally) - Cardiovascular Cardiovascular exam: Present: regular rate, normal rhythm - Abdominal Exam Abdominal exam: Present: soft, Non-Tender - Extremities Exam Extremities exam: Present: normal inspection - Neurological Exam Neurological exam: Present: alert, oriented X3 - Psychiatric Psychiatric exam: Present: normal affect - Skin Skin exam: Present: warm, dry, intact Course Vital Signs Temperature 98.9 F 05/19/19 11:08 Pulse Rate 144 05/19/19 11:08 Respiratory Rate 20 05/19/19 11:08 Blood Pressure 178/100 05/19/19 11:08 O2 Sat by Pulse Oximetry 96 05/19/19 11:08 Temperature 97.8 F 05/19/19 12:54 Pulse Rate 99 05/19/19 12:54 Respiratory Rate 16 05/19/19 12:54 Blood Pressure 132/82 05/19/19 12:54 O2 Sat by Pulse Oximetry 95 05/19/19 12:54 Oxygen Delivery Oxygen Delivery Room Air Psych - MDM Narrative Medical decision making narrative: We will start by given the patient 10 mg of Haldol to get him calm enough that we can provide an appropriate medical evaluation. Once he is medically cleared we will contact psychiatry and have him evaluated. Because of the patient's violent behavior upon arrival he was placed on a nonvoluntary admission status. The 10 mg of Haldol did help him improve in terms of his ability to communicate. He was much calmer. He was evaluated by psychiatry. Even though he was calmer at the end of the stay my concern was that the patient no longer being on medication once the Haldol wore off that his agitation might come back. Psychiatry agreed to admit the patient for observation overnight to make sure that this was not the case and that he was truly stable for discharge to home. - Lab Data Lab results reviewed: Yes I reviewed the patient's lab results. Result diagrams: 05/19/19 11:11 05/19/19 11:27 Lab Results 05/19/19 05/19/19 05/19/19 Range/Units 11:11 11:27 12:02 WBC 15.3 H (4.3-11.1) K/mcL RBC 5.80 H (4.19-5.50) M/mcL Hgb 18.4 H (12.9-16.9) g/dL Hct 53.3 H (37.5-50.1) % MCV 91.9 (83.0-100.0) fL MCH 31.7 (28.0-33.3) pg MCHC 34.5 (31.6-35.5) g/dL RDW 12.8 (11.5-14.5) % Plt Count 267 (140-400) K/mcL MPV 10.4 (9.4-12.4) fL Immature Gran % 0.5 (0-4) % Seg Neutrophils % 60.7 % Lymphocytes % 26.1 % Monocytes % 10.6 % Eosinophils % 1.6 % Basophils % 0.5 % Neutrophils # 9.3 H (1.6-8.9) K/mcL Lymphocytes # 4.0 (0.6-4.6) K/mcL Monocytes # 1.6 H (0.0-1.3) K/mcL Eosinophils # 0.3 (0.0-0.6) K/mcL Basophils # 0.1 (0.0-0.2) K/mcL Sodium 139 (136-145) mEq/L Potassium 3.1 L (3.5-5.1) mEq/L Chloride 104 (98-107) mEq/L Carbon Dioxide 21 L (23-29) mEq/L BUN 9 (6-20) mg/dL Creatinine 1.03 (0.70-1.30) mg/dL Est GFR ( Amer) > 60 (> 60) Est GFR (Non-Af Amer) > 60 (> 60) BUN/Creatinine Ratio 9 (6-26) Glucose 242 H (70-105) mg/dL Calculated Osmolality 295 (280-300) Calcium 9.7 (8.6-10.3) mg/dL Total Bilirubin 0.6 (0.3-1.0) mg/dL Direct Bilirubin 0.1 (0.0-0.2) mg/dL Indirect Bilirubin 0.5 (0.0-1.2) mg/dL AST 17 (13-39) Units/L ALT 21 (7-52) Units/L Alkaline Phosphatase 101 (34-104) Units/L Serum Total Protein 7.5 (6.4-8.9) g/dL Albumin 4.4 (3.5-5.7) g/dL Globulin 3.1 (2.4-3.5) g/dL Albumin/Globulin Ratio 1.4 (1.1-2.2) TSH 0.979 (0.340-5.600) mcIU/mL Urine Color Yellow (Yellow) Urine Clarity Clear (Clear) Urine pH 6.0 (5.0-8.0) pH Units Ur Specific [place] 1.014 (1.010-1.025) Urine Protein Negative (Neg-Trace) mg/dL Urine Glucose (UA) 500 H (Normal) mg/dL Urine Ketones Negative (Negative) mg/dL Urine Blood Negative (Negative) Urine Nitrite Negative (Negative) Urine Bilirubin Negative (Negative) Urine Urobilinogen Normal (Normal) mg/dL Ur Leukocyte Esterase Negative (Negative) Salicylates < 2.5 L (15.0-30.0) mg/dL Urine Opiates Screen (Vzkwgq=394) ng/mL Ur Buprenorphine Scrn (Cutoff=5) ng/mL Acetaminophen < 10 L (10-20) mcg/mL Ur Barbiturates Screen (Ctkily=241) ng/mL Ur Phencyclidine Scrn (Cutoff=25) ng/mL Ur Amphetamines Screen (Cuxfuf=3345) ng/mL U Benzodiazepines Scrn (Lznius=281) ng/mL Urine Cocaine Screen (Cutoff= 300) ng/mL U Marijuana (THC) Screen (Cutoff = 50) ng/mL Ur Drug Screen Interp Ethyl Alcohol 122 H (Less than 10) mg/dL 05/19/19 05/19/19 Range/Units 12:02 14:51 WBC (4.3-11.1) K/mcL RBC (4.19-5.50) M/mcL Hgb (12.9-16.9) g/dL Hct (37.5-50.1) % MCV (83.0-100.0) fL MCH (28.0-33.3) pg MCHC (31.6-35.5) g/dL RDW (11.5-14.5) % Plt Count (140-400) K/mcL MPV (9.4-12.4) fL Immature Gran % (0-4) % Seg Neutrophils % % Lymphocytes % % Monocytes % % Eosinophils % % Basophils % % Neutrophils # (1.6-8.9) K/mcL Lymphocytes # (0.6-4.6) K/mcL Monocytes # (0.0-1.3) K/mcL Eosinophils # (0.0-0.6) K/mcL Basophils # (0.0-0.2) K/mcL Sodium (136-145) mEq/L Potassium (3.5-5.1) mEq/L Chloride (98-107) mEq/L Carbon Dioxide (23-29) mEq/L BUN (6-20) mg/dL Creatinine (0.70-1.30) mg/dL Est GFR ( Amer) (> 60) Est GFR (Non-Af Amer) (> 60) BUN/Creatinine Ratio (6-26) Glucose (70-105) mg/dL Calculated Osmolality (280-300) Calcium (8.6-10.3) mg/dL Total Bilirubin (0.3-1.0) mg/dL Direct Bilirubin (0.0-0.2) mg/dL Indirect Bilirubin (0.0-1.2) mg/dL AST (13-39) Units/L ALT (7-52) Units/L Alkaline Phosphatase (34-104) Units/L Serum Total Protein (6.4-8.9) g/dL Albumin (3.5-5.7) g/dL Globulin (2.4-3.5) g/dL Albumin/Globulin Ratio (1.1-2.2) TSH (0.340-5.600) mcIU/mL Urine Color (Yellow) Urine Clarity (Clear) Urine pH (5.0-8.0) pH Units Ur Specific [place] (1.010-1.025) Urine Protein (Neg-Trace) mg/dL Urine Glucose (UA) (Normal) mg/dL Urine Ketones (Negative) mg/dL Urine Blood (Negative) Urine Nitrite (Negative) Urine Bilirubin (Negative) Urine Urobilinogen (Normal) mg/dL Ur Leukocyte Esterase (Negative) Salicylates (15.0-30.0) mg/dL Urine Opiates Screen Negative (Turlwy=502) ng/mL Ur Buprenorphine Scrn Negative (Cutoff=5) ng/mL Acetaminophen (10-20) mcg/mL Ur Barbiturates Screen Negative (Cbxtvh=155) ng/mL Ur Phencyclidine Scrn Negative (Cutoff=25) ng/mL Ur Amphetamines Screen Negative (Zfufhf=7252) ng/mL U Benzodiazepines Scrn Negative (Jnsofg=096) ng/mL Urine Cocaine Screen Negative (Cutoff= 300) ng/mL U Marijuana (THC) Screen Positive H (Cutoff = 50) ng/mL Ur Drug Screen Interp See Below Ethyl Alcohol 46 H (Less than 10) mg/dL - EKG Data EKG attestation: Yes I reviewed and interpreted this EKG. EKG shows normal: sinus rhythm Rate: tachycardia Rhythm: NSR Interpretation: nonspecific ST-T wave changes Psychiatric Medical Clearance - Medical Clearance Checklist Does the patient have a NEW psychiatric condition?: No Any abnormalities indicating possible medical illness?: No Any history of medical issues?: No Medical History: No Social History Section defined Any abnormal vital signs prior to transfer?: No Current Vitals: Last Vital Signs Temp 97.8 F 05/19/19 12:54 Pulse 99 05/19/19 12:54 Resp 16 05/19/19 12:54 BP 132/82 05/19/19 12:54 Pulse Ox 95 05/19/19 12:54 Is the patient intoxicated or cognitively impaired?: No Psychiatric Lab Panel: Drug Levels and Toxicity 05/19/19 05/19/19 05/19/19 11:27 12:02 14:51 Urine Opiates Screen Negative Acetaminophen < 10 L Ur Barbiturates Screen Negative Ur Phencyclidine Scrn Negative Ur Amphetamines Screen Negative U Benzodiazepines Scrn Negative Urine Cocaine Screen Negative U Marijuana (THC) Screen Positive H Ethyl Alcohol 122 H 46 H Any abnormalities on the physical exam?: No Any abnormal labs?: No Abnormal Labs: Abnormal lab results WBC 15.3 K/mcL (4.3-11.1) H 05/19/19 11:11 RBC 5.80 M/mcL (4.19-5.50) H 05/19/19 11:11 Hgb 18.4 g/dL (12.9-16.9) H 05/19/19 11:11 Hct 53.3 % (37.5-50.1) H 05/19/19 11:11 Neutrophils # 9.3 K/mcL (1.6-8.9) H 05/19/19 11:11 Monocytes # 1.6 K/mcL (0.0-1.3) H 05/19/19 11:11 Potassium 3.1 mEq/L (3.5-5.1) L 05/19/19 11:27 Carbon Dioxide 21 mEq/L (23-29) L 05/19/19 11:27 Glucose 242 mg/dL (70-105) H 05/19/19 11:27 Urine Glucose (UA) 500 mg/dL (Normal) H 05/19/19 12:02 Salicylates < 2.5 mg/dL (15.0-30.0) L 05/19/19 11:27 Acetaminophen < 10 mcg/mL (10-20) L 05/19/19 11:27 U Marijuana (THC) Screen Positive ng/mL (Cutoff = 50) H 05/19/19 12:02 Ethyl Alcohol 46 mg/dL (Less than 10) H 05/19/19 14:51 Does the patient require durable medical equiptment?: No Is the patient ambulatory?: Yes Is the patient a fall risk?: No Has the patient been medically cleared?: Yes Any acute medical condition require Tx prior to transfer?: No Statement of Medical Clearance: I have evaluated the patient, reviewed diagnostic information, and certify that the patient's medical condition is sufficiently stable that transfer to the psychiatric unit does not pose a significant risk of deterioration.
[2019-05-19 11:41] LABS: Basophils # 0.1 K/mcL (0.0-0.2); Basophils % 0.5 %; Eosinophils # 0.3 K/mcL (0.0-0.6); Eosinophils % 1.6 %; Hematocrit 53.3 % (37.5-50.1); Hemoglobin 18.4 g/dL (12.9-16.9); Immature Granulocytes % 0.5 % (0-4); Lymphocytes % 26.1 %; Mean Corpuscular HGB Conc 34.5 g/dL (31.6-35.5); Mean Corpuscular Hemoglobin 31.7 pg (28.0-33.3); Mean Corpuscular Volume 91.9 fL (83.0-100.0); Mean Platelet Volume 10.4 fL (9.4-12.4); Monocytes # 1.6 K/mcL (0.0-1.3); Monocytes % 10.6 %; Neutrophils # 9.3 K/mcL (1.6-8.9); Platelet Count 267 K/mcL (140-400); Red Cell Distribution Width 12.8 % (11.5-14.5); Segmented Neutrophils % 60.7 %; White Blood Count 15.3 K/mcL (4.3-11.1)
[2019-05-19 12:03] LABS: Acetaminophen < 10 mcg/mL (10-20); Alanine Aminotransferase 21 Units/L (7-52); Albumin 4.4 g/dL (3.5-5.7); Albumin/Globulin Ratio 1.4 (1.1-2.2); Alkaline Phosphatase 101 Units/L (34-104); Aspartate Amino Transferase 17 Units/L (13-39); BUN/Creatinine Ratio 9 (6-26); Bilirubin,Direct 0.1 mg/dL (0.0-0.2); Bilirubin,Indirect 0.5 mg/dL (0.0-1.2); Bilirubin,Total 0.6 mg/dL (0.3-1.0); Blood Urea Nitrogen 9 mg/dL (6-20); Calcium 9.7 mg/dL (8.6-10.3); Carbon Dioxide 21 mEq/L (23-29); Chloride 104 mEq/L (98-107); Globulin 3.1 g/dL (2.4-3.5); Glucose 242 mg/dL (70-105); Osmolality,Calculated 295 (280-300); Potassium 3.1 mEq/L (3.5-5.1); Salicylate < 2.5 mg/dL (15.0-30.0); Sodium 139 mEq/L (136-145); Total Protein 7.5 g/dL (6.4-8.9); eGFR For African Americans > 60 (> 60); eGFR For Non-African Americans > 60 (> 60)
[2019-05-19] MEDS ORDERED: 0.9 % Sodium Chloride 1,000 ML IVC ONE (12:13)
[2019-05-19 12:14] LABS: Ethanol 122 mg/dL (Less than 10); Thyroid Stimulating Hormone 0.979 mcIU/mL (0.340-5.600)
[2019-05-19 12:37] LABS: Amphetamine Screen,Urine Negative ng/mL (Cutoff=1000); Barbiturate Screen,Urine Negative ng/mL (Cutoff=200); Benzodiazepines Screen,Urine Negative ng/mL (Cutoff=200); Cannabinoid Screen,Urine Positive ng/mL (Cutoff = 50); Cocaine Screen,Urine Negative ng/mL (Cutoff= 300); Opiate Screen,Urine Negative ng/mL (Cutoff=300); Phencyclidine Screen,Urine Negative ng/mL (Cutoff=25)
[2019-05-19 12:39] LABS: Bilirubin,Urine Negative (Negative); Blood,Urine Negative (Negative); Clarity,Urine Clear (Clear); Color,Urine Yellow (Yellow); Glucose,Urine (UA) 500 mg/dL (Normal); Ketones,Urine Negative (Negative); Leukocyte Esterase,Urine Negative (Negative); Nitrite,Urine Negative (Negative); Protein,Urine Negative (Neg-Trace); Specific Gravity,Urine 1.014 (1.010-1.025); Urobilinogen,Urine Normal (Normal)
[2019-05-19] MEDS ORDERED: Mag Hydrox/Al Hydrox/Simeth 30 ML UDC PO PRN (17:51)
[2019-05-19] MEDS ORDERED: Acetaminophen 325 MG TABLET PO PRN (17:51)
[2019-05-19] MEDS ORDERED: *HR* LORazepam 2 MG/ML VIAL IM PRN (17:51)
[2019-05-19] MEDS ORDERED: Haloperidol Lactate 5 MG/ML VIAL IM PRN (17:51)
[2019-05-19] MEDS ORDERED: *HR* LORazepam 1 MG TABLET PO PRN (17:51)
[2019-05-19] MEDS ORDERED: MOM Conc 10 ML UD.LIQ PO PRN (17:51)
[2019-05-19] MEDS ORDERED: hydrOXYzine pamoate 25 MG CAPSULE PO PRN (17:51)
[2019-05-19] MEDS: Nicotine 21 MG PATCH.TD24 TD SCH (18:38)
[2019-05-20] MEDS: Nicotine 21 MG PATCH.TD24 TD SCH (09:27)
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
[2019-05-20 11:50] LABS: Estimated Average Glucose 128 mg/dl
[2019-05-20 12:01] LABS: Chol/HDL Ratio 4.9 (0-4.9)
[2019-05-20] MEDS: traZODone 50 MG TABLET PO PRN (20:28)
[2019-05-20] MEDS ORDERED: *HR* LORazepam 1 MG TABLET PO ONE (20:46)
[2019-05-21] MEDS: Nicotine 21 MG PATCH.TD24 TD SCH (09:10)
--- NOTE | 2019-05-21 10:38 | Psychiatry Progress Note ---
Date of Encounter: 05/21/19 Time of Encounter: 10:33 Subjective Interval history: Client has chronic Schizophrenia and reports he has had AH for "40 years." States hallucinations present even with med compliance. Client admits he has not been taking his Invega regularly. [place]s [place] [facility] but client states most of the time they trust him to take the meds and that he does not always do this. Willing to get restarted. Apparently does well when compliant with his Invega. Client denies any SI, intent, or plan. Denies HI. Staff report he has been disorganized and responding to IS on the unit but he did well with this life underwriter today. Will give him another day on meds in the hospital but hopefully this will be a quick stabilization. Will alert [facility] that he has not been faithful with taking meds and if they continue to do daily med drops they can monitor him a little closer for a while. Potential discharge tomorrow if he has a good day today. Review of Systems Constitutional: Denies: fever, chills, weakness, weight change Eyes: Denies: eye pain, vision change Ears, Nose, Throat: Denies: ear pain, throat pain, dental pain, hearing loss, congestion Cardiovascular: Denies: chest pain, palpitations, dyspnea on exertion Respiratory: Denies: cough, dyspnea, wheezes Gastrointestinal: Denies: abdominal pain, nausea, vomiting, diarrhea, constipation Musculoskeletal: Denies: joint swelling, joint pain Neurological: Denies: headache, weakness, numbness, memory loss Psychiatric: Reports: depression, abnormal sleep pattern, suicidal ideation, auditory hallucinations, hopelessness, irritability, mood swings Results - Vital Signs Vital Signs: Temp Pulse Resp BP Pulse Ox 97.5 F L 126 20 177/81 97 05/21/19 09:00 05/21/19 09:00 05/21/19 09:00 05/21/19 09:00 05/21/19 09:00 - Labs Labs: Laboratory Results - last 24 hr 05/20/19 05/20/19 05/20/19 11:00 11:00 20:27 POC Glucose 139 H Est Mean Plasma Glucose 128 Hemoglobin A1c 6.1 H Triglycerides 145 Cholesterol 142 LDL Cholesterol, Calc 84 VLDL Cholesterol, Calc 29 HDL Cholesterol 29 L Cholesterol/HDL Ratio 4.9 Assessment and Plan (1) Chronic schizophrenia Current visit: Yes Status: Acute Plan: Continue hospitalization, Close observation, Suicide Precautions per unit protocol, Encourage participation in unit milieu, Group Therapy, Monitor sleep, Monitor appetite Risks, benefits, side effects, alternatives discussed w/pt: Yes Patient agreeable to treatment: Yes Consult Discharge Plan - Plan Referrals: NONE,PCP [Primary Care Provider] - Psychiatry Exam - Constitutional Vitals: Temp Pulse Resp BP Pulse Ox 97.5 F L 126 20 177/81 97 05/21/19 09:00 05/21/19 09:00 05/21/19 09:00 05/21/19 09:00 05/21/19 09:00 General appearance: age & developmentally appropriate, well-groomed, well- nourished - Musculoskeletal Gait: normal Station: relaxed Strength & Tone: normal for patient - Psychiatric Patient Orientation: Yes Person, Yes Time, Yes Place Level of alertness: Alert Behavior: calm, cooperative Psychomotor activity: Increased Eye Contact: Maintains Eye Contact Mood Description: Elevated Affect description: congruent with mood Speech Volume: Normal Speech pattern: normal rate, normal rhythm, normal tone, fluent, spontaneous Language & Vocabulary: consistent with education Thought Process: Linear, Goal Oriented Thought Content: No Suicidal ideation, No Homicidal ideation, No Overt delusions Perceptual Disturbances: Yes Reacting to internal stimuli, Yes Auditory hallucinations Attention Span Ability: Capable of Focused Attention Memory Description: Grossly Intact Patient Reliability: Questionable Historian Fund of knowledge: Yes abstraction ability, Yes aware of current events Intelligence Estimate: Average Judgment: Limited Insight: Partial
--- NOTE | 2019-05-21 16:42 | Electrocardiograph Report ---
[facility] Test Date: 2019-05-19 Pat Name: John Raygoza Department: [id number] Room: 1A45 Gender: M [employer]: : 1960 Requested By: Alexander Peace Order Number: [id number] Reading MD: Musa Mackenzie Measurements Intervals [place] Rate: 117 P: 87 OK: 149 QRS: 95 QRSD: 85 T: 11 QT: 346 QTc: 483 Interpretive Statements Sinus tachycardia Borderline right axis deviation Minimal ST depression, inferior leads Borderline prolonged QT interval Electronically Signed On 05-21-2019 16:40:45 EDT by Musa Mackenzie
[2019-05-21] MEDS: traZODone 50 MG TABLET PO PRN (20:20)
[2019-05-22] MEDS: Nicotine 21 MG PATCH.TD24 TD SCH (08:53)
[2019-05-22 09:06] VITALS: BP 156/95
--- NOTE | 2019-05-22 09:44 | Discharge Summary ---
Date of Encounter: 05/22/19 Time of Encounter: 09:38 Diagnosis - Discharge Diagnosis (1) Chronic schizophrenia Status: Acute Medications - Discharge Medications Paliperidone [Invega] 6 mg PO BID 05/19/19 [History] Allergy/AdvReac Type Severity Reaction Status Date / Time Penicillins Allergy Anaphylaxis Verified 04/30/19 12:00 Results Procedures and tests throughout hospitalization: Completed Lab Orders Category Date Time Status Acetaminophen Stat Lab 05/19/19 11:27 Completed Basic Metabolic Panel Stat Lab 05/19/19 11:27 Completed Blood Alcohol [Ethanol] Stat Lab 05/19/19 14:51 Completed Complete Blood Count [HEME] Stat Lab 05/19/19 11:11 Completed Drug Screen, Urine [UCHEM] Stat Lab 05/19/19 12:02 Completed Ethanol Stat Lab 05/19/19 11:27 Completed Hepatic Panel Stat Lab 05/19/19 11:27 Completed Hgb A1C Routine Lab 05/20/19 11:00 Completed Lipid Panel Routine Lab 05/20/19 11:00 Completed Salicylate Stat Lab 05/19/19 11:27 Completed Thyroid Stimulating Hormone Stat Lab 05/19/19 11:27 Completed Urinalysis reflex Microscopic [URIN] Stat Lab 05/19/19 12:02 Completed Provider Date of admission: 05/20/19 16:22 Primary care physician: PCP NONE Discharging clinician: Milla Omer Psychiatry Exam - Constitutional Vitals: Temp Pulse Resp BP Pulse Ox 98.5 F 112 18 156/95 97 05/22/19 09:00 05/22/19 09:00 05/22/19 09:00 05/22/19 09:00 05/22/19 09:00 General appearance: obese - Musculoskeletal Gait: normal Station: relaxed Strength & Tone: normal for patient - Psychiatric Patient Orientation: Yes Person, Yes Time, Yes Place Level of alertness: Alert Behavior: calm, cooperative Psychomotor activity: Increased Eye Contact: Maintains Eye Contact Mood Description: Euthymic/stable Affect description: congruent with mood Speech Volume: Normal Speech pattern: normal rate, normal rhythm, normal tone, fluent, spontaneous Language & Vocabulary: consistent with education Thought Process: Linear, Goal Oriented Thought Content: No Suicidal ideation, No Homicidal ideation, No Overt delusions Perceptual Disturbances: Yes Reacting to internal stimuli, Yes Auditory hallucinations Attention Span Ability: Capable of Focused Attention Memory Description: Grossly Intact Patient Reliability: Reliable Historian Fund of knowledge: Yes abstraction ability, Yes aware of current events Intelligence Estimate: Average Judgment: Limited Insight: Partial Hospital Course Hospital course: Mr. Raygoza is a 58 year old male who was admitted for SI and aggressive behavior. Client has chronic Schizophrenia and is linked with [facility]. They see client daily and do daily med drops. Client states recently staff from [facility] have not been watching him take his meds and he has elected not to take them. Agreed to restart his home meds this admission and quickly stabilized. On the unit he has been pleasant, cooperative, and interactive. Eating and sleeping well. Attending groups. He has consistently denied SI, intent, or plan since coming to . Has AH at baseline but client douglas well with them. [facility] updated regarding his noncompliance so they can monitor him more closely during their daily contacts with him. Plan is to discharge client back to his apartment today. Total time spent with client greater than 30 minutes. Patient was educated of his diagnosis and the risks, benefits, and side effects of this treatment and alternative treatment options and was monitored for responsiveness and side effects. Mood, anxiety, sleep, appetite, and interest improved, as did future orientation. Self-harm thoughts subsided, thinking cleared, psychosis resolved, and mood stabilized. Patient was able to attend both individual and group therapy sessions as well as meeting with the psychiatrist daily and urged to discuss any medication or treatment issues or other concerns. The patient was educated primarily by verbal means about their diagnosis and manifestations in their life. The option for treatment including group and individual therapy programming was offered to the patient in the use of medications with all their potential risks, benefits, and side effects were discussed with the patient at length. The patient was given the opportunity to ask questions and was noted to participate in the treatment in the planning process. The patient felt ready and eager to be discharged from the inpatient psychiatric unit to continue on with treatment as an outpatient. The patient agreed that he is safe for this disposition. The patient was considered to be able to participate in informed consent and decision making with respect to medical, legal, and financial issues of the time of discharge. At the time of discharge the patient adamantly denied any concerns for lethality including suicidal or homicidal thoughts ideations or plans and was future oriented toward ongoing mental health care, medical follow-up and sobriety. - Time Spent with Patient Total time spent providing and/or coordinating discharge services: Greater than 30 minutes Assessment and Plan - Patient/Caregiver Discharge Instructions Activity: resume usual activities as tolerated Diet: low fat, low cholesterol - Follow up Plan Follow up with: NONE,PCP [Primary Care Provider] - Functional capacity at discharge: independent ambulation Overall status at discharge: Stable Disposition: Home, Self-Care Quality - Multiple Antipsychotics Patient discharged on 2 or more antipsychotic medications: No Procedures - Procedures Procedures: Medication Management, Crisis Stabilization, Supportive Therapy, Group Therapy
== END 2019-05-22 11:00 | disposition home or self-care (01) | DRG 885 ==
LOC: 1ANU 11:02 → EMEROOARM 11:02 → 1ANU 18:06
PROVIDERS: ADMIT Psychiatry & Neurology Psychiatry; ATTEND Psychiatry & Neurology Psychiatry